=== PATIENT | female | born 1950 | race Caucasian/White ===

== ENCOUNTER 2017-02-05 08:23 | Emergency (ER) | payer BC ==
[2017-02-05 08:35] VITALS: RESP 16; TEMP 97.5
--- NOTE | 2017-02-05 10:44 | UCPHY ---
H & P Time Seen by Provider: 02/05/17 08:28 Patient Type: New HPI/ROS: 67-year-old female presents complaining of right lower back pain right buttock pain and right posterior thigh pain for several days duration that is just not improving despite attempting to rest that area. No loss of bowel or bladder control, no numbness or tingling in her extremities. 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 She is here helping to take care of grandchildren for several days and will be returning to [place] approximately 1 week. Review of systems General no fever no chills no weakness HEENT no eye pain no eye discharge. 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 Social History: Patient works as a physical therapist She lives in [place] and is visiting [place] Smoking Status: Never smoked Physical Exam: 67-year-old female alert and oriented in moderate distress secondary to right sciatic pain Alert and oriented in no acute distress nontoxic appearance, afebrile Atraumatic normocephalic Neck no JVD Lungs clear to auscultation, no respiratory distress Heart regular rate and rhythm Extremities no cyanosis clubbing edema Back Tenderness to palpation at right SI joint with radiation to right buttock and right lateral thigh Gait intact Sensation intact Negative straight leg raise No measurable weakness, however patient feels she has weakness with abduction of right hip Constitutional: Initial Vital Signs Temperature (C) 36.4 C 02/05/17 08:25 Heart Rate 92 02/05/17 08:25 Respiratory Rate 16 02/05/17 08:25 Blood Pressure 154/82 H 02/05/17 08:25 O2 Sat (%) 95 02/05/17 08:25 O2 Delivery Mode Room Air Allergies/Adverse Reactions: No Known Allergies Allergy (Verified 02/05/17 08:35) Home Medications: Medication Instructions Recorded Claritin 02/05/17 Cyclobenzaprine [Flexeril 10 MG 10 mg PO TID PRN #15 tab 02/05/17 (*)] Hydrocodone/Acetaminophen [Erie 1 - 2 tab PO Q6H PRN #16 tab 02/05/17 5/325 (*)] Potassium 02/05/17 methylPREDNISolone [Medrol Dose 1 each PO AD #1 ea 02/05/17 Dimitri] Medical Decision Making - Diagnostics Imaging Results: Imaging Impressions Lumbar Spine X-Ray 02/05/17 09:28 Impression: Anatomy that would predispose and findings indicative of right hip degeneration. 2. Lumbar Spine, five views History: Pain, right radiculopathy Findings: There are 6 lumbarized vertebral bodies (the lowest of which will be considered L5 for the purposes of this report) associated with a mild scoliosis concave to the left centered at T11-T12. There is mild narrowing of the L4-L5 disk space where there is a mild spondylolisthesis. There is no spondylolysis. 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 There is degenerative change of the L4-L5 and L5-S1 facet joints. There are no compression fractures. There is right renal, upper and lower pole, nonobstructive nephrolithiasis. There is a small amount of atherosclerotic calcification of the abdominal aorta. Impression: 1. Degenerative lumbar changes described above in a patient with a congenitally small low lumbar neural canal. If radicular symptoms persist lumbar MRI might be helpful. 2. Nonobstructive right nephrolithiasis. Might the patient symptoms be related to passing a stone? 3. Atherosclerotic disease. Hip X-Ray 02/05/17 09:29 Impression: Anatomy that would predispose and findings indicative of right hip degeneration. 2. Lumbar Spine, five views History: Pain, right radiculopathy Findings: There are 6 lumbarized vertebral bodies (the lowest of which will be considered L5 for the purposes of this report) associated with a mild scoliosis concave to the left centered at T11-T12. There is mild narrowing of the L4-L5 disk space where there is a mild spondylolisthesis. There is no spondylolysis. 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 There is degenerative change of the L4-L5 and L5-S1 facet joints. There are no compression fractures. There is right renal, upper and lower pole, nonobstructive nephrolithiasis. There is a small amount of atherosclerotic calcification of the abdominal aorta. Impression: 1. Degenerative lumbar changes described above in a patient with a congenitally small low lumbar neural canal. If radicular symptoms persist lumbar MRI might be helpful. 2. Nonobstructive right nephrolithiasis. Might the patient symptoms be related to passing a stone? 3. Atherosclerotic disease. ED Course/Re-evaluation: Patient seen and evaluated for right lower back and buttock pain of several days duration that just does not seem to be improving Differential diagnosis considered Right lower back strain, right sciatica, right piriformis strain, SI joint pain Impression Right sciatica Plan Medrol Dosepak, Flexeril, Erie Rest ice Follow up with primary care physician If pain or weakness worsening advised that you go to the closest emergency department. Departure - Departure Disposition: Home, Routine, Self-Care Clinical Impression: Acute low back pain with sciatica Condition: Good Instructions: Sciatica (ED), Lumbar Radiculopathy (ED) Referrals: [facility] [Other] - As per Instructions Prescriptions: Cyclobenzaprine [Flexeril 10 MG (*)] 10 mg PO TID PRN #15 tab PRN Reason: Spasms Hydrocodone/Acetaminophen [Erie 5/325 (*)] 1 - 2 tab PO Q6H PRN #16 tab PRN Reason: Pain, Moderate methylPREDNISolone [Medrol Dose Dimitri] 1 each PO AD #1 ea - PQRS PQRS Measurement: na
[2017-02-05 11:16] VITALS: BP 148/79; PULSE 88; O2SAT 96
== END 2017-02-05 11:10 | disposition home or self-care (01) ==
LOC: CED 08:23
DX: M54.31 Sciatica, right side (principal)
CPT/HCPCS: 72100-PO; 73502-PO; G0463-PO